=== PATIENT | female | born 1990 | race Caucasian/White ===

== ENCOUNTER 2017-03-12 10:13 | Emergency (ER) | payer OTHER ==
[~2017-03-12] VITALS: Ht 167.6 cm; Wt 77.1 kg
[2017-03-12 10:16] VITALS: BP 117/80
--- NOTE | 2017-03-12 10:48 | ED GI/GU/ABDOMINAL COMPLAINT ---
History of Present Illness General Chief Complaint: General Adult Stated Complaint: N/V/D YESTERDAY Source: patient Exam Limitations: no limitations Vital Signs & Intake/Output Vital Signs & Intake/Output ED Intake and Output 03/13 0000 03/12 1200 Intake Total Output Total Balance Patient 170 lb Weight Allergies Coded Allergies: NO KNOWN ALLERGIES (02/23/12) Triage Note: PT STATES THAT SHE WAS SICK X 2 DAYS AND THAT SHE NEEDS A NOTE TO RETURN TO WORK. Triage Nurses Notes Reviewed? yes ? N Is pt currently ? No Onset: Abrupt Duration: better Timing: recent history Quality/Severity: mild Severity Numbers: 1 HPI: Patient is a 26-year-old female who presents emergency room stating that for the past 3 days she has had concerns of nausea and vomiting and diarrhea. Patient states onset began after eating [employer] in the past 24 hours symptoms have significantly improved patient is able tolerate by mouth. Denies any bright red blood or melena noted after bowel movements. Denies any fever chills shortness breath cough abdominal pain. Patient denies any and is sexually active with another female Patient states that she missed last 2 days of work and was requesting medical clearance and a note to return back to work. Denies any recent antibiotic use (SHERWIN MASON) Past History Travel History Traveled to [place] past 21 day No Medical History Any Pertinent Medical History? see below for history Neurological: NONE EENT: NONE Cardiovascular: NONE Respiratory: asthma Gastrointestinal: NONE Hepatic: NONE Renal: NONE Musculoskeletal: NONE Psychiatric: NONE Endocrine: NONE Blood Disorders: NONE Cancer(s): NONE MACHINE I CUTTER/Reproductive: NONE Surgical History Surgical History: none Psychosocial History What is your primary language Nauruan Tobacco Use: Never used ETOH Use: denies use Illicit Drug Use: denies illicit drug use Family History Hx Contributory? No (SHERWIN MASON) Review of Systems Review of Systems Constitutional: Reports: no symptoms. EENTM: Reports: no symptoms. Respiratory: Reports: no symptoms. Cardiovascular: Reports: no symptoms. GI: Reports: see HPI, nausea. Genitourinary: Reports: no symptoms. Musculoskeletal: Reports: no symptoms. Skin: Reports: no symptoms. Neurological/Psychological: Reports: no symptoms. Hematologic/Endocrine: Reports: no symptoms. Immunologic/Allergic: Reports: no symptoms. All Other Systems: Reviewed and Negative (SHERWIN MASON) Physical Exam Physical Exam General Appearance: no apparent distress, alert, comfortable Gastrointestinal: normal bowel sounds, soft, non-tender Comments: Well-developed well-nourished person in no acute distress HEENT: Normal EENT exam, Neck: Supple, no lymphadenopathy, normal range of motion without pain or tenderness Back: Nontender, no CVA tenderness Abdomen: Soft, nontender nondistended, no appreciable organomegaly. Normal bowel sounds. No ascites Extremity: No edema, no calf tenderness to palpation, normal and equal pulses. Neuro: Alert oriented x3, motor sensory normal, Skin: No appreciable rash on exposed skin, skin is warm and dry. Psych: Mood and affect is normal, memory and judgment is normal. Core Measures ACS in differential dx? No Severe Sepsis Present: No Septic Shock Present: No (SHERWIN MASON) Progress Differential Diagnosis: AAA, AMI, appendicitis, biliary colic, bowel obstruction , colon cancer, cholecystitis, diverticulitis, ectopic , endometritis, esophageal varices, gastritis, hepatitis, hernia, hemorrhoids, ischemic bowel, inflamm bowel dis, intrauterine , kidney stone, Erna-Shahzad tear, ovarian cyst, ovarian torsion, pancreatitis, PID/cervicitis, peptic ulcer, PUD/ GERD, perforated viscous, SBO, threatened AB, UTI/pyelo Plan of Care: Patient currently is afebrile nontoxic appearing is able tolerate by mouth nontender abdomen patient denies any and has a female partner. Due to his present dose exam finds patient is likely to have gastroenteritis due to fast food which she has stated that her symptoms have improved and patient was REQUESTING only medical clearance to return to work. Upon discharge patient looks well no apparent distress and will comply with discharge instructions and had no questions Initial ED EKG: none (SHERWIN MASON) Departure Departure Disposition: HOME OR SELF CARE Condition: Stable Clinical Impression Primary Impression: Gastroenteritis Referrals: BECKA DAVILA APRN (PCP/Family) Additional Instructions: As discussed begin a 24 hour clear liquid and bland diet to rest her bowels. If symptoms worsen return to emergency room. If no better in 2 days follow-up with gas examiner Dr. ARAUZ. Departure Forms: Customer Survey General Discharge Information (SHERWIN MASON) PA/PERISHABLE FRUIT INSPECTOR Co-Sign Statement Statement: ED Attending supervision documentation- [] I saw and evaluated the patient. I have also reviewed all the pertinent lab results and diagnostic results. I agree with the findings and the plan of care as documented in the PA's/PERISHABLE FRUIT INSPECTOR's documentation. [X] I have reviewed the ED Record and agree with the PA's/PERISHABLE FRUIT INSPECTOR's documentation. [] Additions or exceptions (if any) to the PAs/PERISHABLE FRUIT INSPECTOR's note and plan are summarized below: [] (CAREN IRELAND,ELENA)
== END 2017-03-12 10:52 ==
LOC: ERH 10:13
DX: K52.9 Noninfective gastroenteritis and colitis, unspecified (principal)